=== PATIENT | female | born 1990 | race Caucasian/White ===

== ENCOUNTER 2022-03-14 12:53 | Outpatient (CLI) | payer OTHER ==
[~2022-03-14] VITALS: Ht 156.2 cm; Wt 88.9 kg
[~2022-03-14 12:53] MED LIST: FLEXERIL 10 MG10 MG PO; IBUPROFEN800 MG PO
== END 2022-03-14 20:23 ==
LOC: GENOP 12:53
DX: O42.913 Preterm premature rupture of membranes, unspecified as to length of time between rupture and onset of labor, third trimester (principal); Z3A.31 31 weeks gestation of pregnancy
CPT/HCPCS: 76815; 81001; 84112; 96365; 96366; 96372; 96374; 96375; C9113; J0290; J0702; J2405; J2795; J3475